=== PATIENT | female | born 2000 | race Caucasian/White ===

== ENCOUNTER 2021-10-09 21:43 | Emergency (ER) | payer BC, OTHER ==
[2021-10-09 21:57] VITALS: RESP 18
--- NOTE | 2021-10-09 23:14 | ED ---
Fever HPI - General Chief Complaint: Fever Stated Complaint: fever Time Seen by Provider: 10/09/21 22:55 Source: patient, RN notes reviewed Mode of arrival: ambulatory Limitations: no limitations - History of Present Illness Initial Comments: Patient is a 21-year-old female that presents to the emergency department complaining of fever and upper respiratory tract symptoms for the past several days. She notes she came to the emergency room due to being unable to break her fever. She notes it was anywhere from 102 203.5 at home. She notes she been taking DayQuil Tylenol throughout the day. She was otherwise well-appearing in no apparent distress. She denied any chest pain first breath headache nausea vomiting diarrhea constipation fatigue chills. - Related Data Previous Rx's Medication Instructions Recorded predniSONE 50 mg PO DAILY #5 tab 10/09/21 Allergies Allergy/AdvReac Type Severity Reaction Status Date / Time No Known Allergies Allergy Verified 10/09/21 21:57 Review of Systems ROS Statement: Those systems with pertinent positive or pertinent negative responses have been documented in the HPI. ROS Other: All systems not noted in ROS Statement are negative. Past Medical History Past Medical History: No Reported History History of Any Multi-Drug Resistant Organisms: None Reported Past Surgical History: Breast Surgery Past Psychological History: No Psychological Hx Reported Smoking Status: Never smoker Past Alcohol Use History: Occasional Past Drug Use History: None Reported General Exam Limitations: no limitations General appearance: alert, in no apparent distress Head exam: Present: atraumatic, normocephalic, normal inspection Eye exam: Present: normal appearance, PERRL, EOMI. Absent: scleral icterus, conjunctival injection, periorbital swelling ENT exam: Present: normal exam, mucous membranes moist Neck exam: Present: normal inspection Respiratory exam: Present: normal lung sounds bilaterally. Absent: respiratory distress, wheezes, rales, rhonchi, stridor Cardiovascular Exam: Present: regular rate, normal rhythm, normal heart sounds. Absent: systolic murmur, diastolic murmur, rubs, gallop, clicks Extremities exam: Present: normal inspection, full ROM, normal capillary refill. Absent: tenderness, pedal edema, joint swelling, calf tenderness Neurological exam: Present: alert, oriented X3 Psychiatric exam: Present: normal affect, normal mood Skin exam: Present: warm, dry, intact, normal color. Absent: rash Course Vital Signs 10/09/21 21:54 Temperature 100.9 F H Pulse Rate 122 H Respiratory 18 Rate Blood Pressure 131/80 O2 Sat by Pulse 96 Oximetry Medical Decision Making - Medical Decision Making 19-year-old female complaining of fever and upper respiratory tract symptoms. Covid test ordered and is positive. Patient does not meet criteria for monoclonal antibodies but is agreeable with discharge home with conservative management. Case discussed with Dr. Hernandez - Lab Data Lab Results 10/09/21 Range/Units 22:03 Coronavirus (PCR) Detected A (Not Detectd) Disposition Clinical Impression: COVID Disposition: HOME SELF-CARE Condition: Stable Instructions (If sedation given, give patient instructions): Fever in Adults (ED) Additional Instructions: Please return to the Emergency Department if symptoms worsen or any other concerns. Follow-up with primary care 1-2 days been Alternate Motrin 600 and Tylenol 650 every 3 hours as needed for fever control. Take prednisone as prescribed. Prescriptions: predniSONE 50 mg PO DAILY #5 tab Is patient prescribed a controlled substance at d/c from ED?: No Referrals: Choco Gallagher MD [Primary Care Provider] - 1-2 days Time of Disposition: 23:14
[2021-10-09 23:34] VITALS: BP 111/59; PULSE 98; TEMP 99
== END 2021-10-09 23:33 | disposition home or self-care (01) ==
LOC: EC 21:43
DX: U07.1 COVID-19 (principal)
CPT/HCPCS: 87635; 99283

== ENCOUNTER → 2023-06-22 | Outpatient (CLI) | payer BC ==
--- NOTE | 2023-06-22 14:28 | US ---
EXAMINATION TYPE: US transvaginal DATE OF EXAM: 06/22/2023 COMPARISON: NONE CLINICAL INDICATION: Female, 23 years old with history of R10.2 PELVIC AND PERINEAL PAIN; Pain patien t donates eggs last time x 1 1/2 years ago. TECHNIQUE: Transvaginal (TV EXAM MEASUREMENTS: Uterus: 7.4 x 4.5 x 5.1 cm Endometrial Stripe: 1.1 cm Right Ovary: 5.0 x 2.6 x 3.6 cm Left Ovary: 4.7 x 2.1 x 3.8 cm 1. Uterus: Anteverted wnl 2. Endometrium: wnl 3. Right Ovary: Appears enlarged 4. Left Ovary: Appears enlarged hypoechoic area calcified 1.5 x 1.8 x 1.8 cm. 5. Bilateral Adnexa: wnl 6. Posterior cul-de-sac: wnl IMPRESSION: 1. Nonspecific Solid appearing lesion left ovary with focal calcification. Follow-up study in 6 weeks is advised.
== END | disposition home or self-care (01) ==
LOC: RADUSWWP 13:38
PROVIDERS: ATTEND Family Medicine
DX: N83.9 Noninflammatory disorder of ovary, fallopian tube and broad ligament, unspecified (principal); R10.2 Pelvic and perineal pain
CPT/HCPCS: 76830

== ENCOUNTER → 2023-07-12 | Outpatient (CLI) | payer BC ==
--- NOTE | 2023-07-12 10:47 | CT ---
EXAMINATION TYPE: CT abdomen pelvis wo con DATE OF EXAM: 07/12/2023 COMPARISON: 05/06/2015 HISTORY: 23-year-old female R19.09, other intra-abdominal and pelvic swelling, left ovarian mass CT DLP: 357.2 mGycm. Automated exposure control for dose reduction was used. TECHNIQUE: Contiguous axial scanning of the abdomen and pelvis without IV contrast. Coronal and sagit allyson reconstructions performed. FINDINGS: LUNG BASES: No significant abnormality is appreciated. Partially visualized bilateral breast implants . LIVER/GB: No significant abnormality is appreciated. PANCREAS: No significant abnormality is seen. SPLEEN: No significant abnormality is seen. ADRENALS: No significant abnormality is seen. KIDNEYS: No significant abnormality is seen. BOWEL: Normal appendix. Scattered [id number] stool. No pericolonic inflammatory change. Some sc attered prominent fluid-filled small bowel loops. No dilated small bowel, free fluid, or free air. LYMPH NODES: A couple borderline enlarged lymph nodes right lower quadrant measuring up to 1 cm. OTHER: No significant abnormality is seen. PELVIS: Uterus is retroverted. Prominent bilateral ovaries are redemonstrated. Left ovary measuring 5 .4 x 3.3 cm, versus 4.7 x 2.9 cm in 2015. On the present exam, we appreciate internal fat density jihan ng the anterior margin. Possibly underlying cystic change with septation involving the left ovary whi ch measures at least 4.6 x 4.1 cm, slightly larger from 3.9 x 3.4 cm, previously. No abnormal fluid c ollection in the pelvis or pelvic lymphadenopathy seen. BONES: No significant abnormality is seen. IMPRESSION: 1. Large size to the bilateral ovaries, slightly increased from 2015. Possibly underlying complex cy stic lesion in the right ovary and suspected underlying slightly enlarging dermoid cyst of the left o vary. Right ovary measures up to 5.4 cm versus 4.7 cm in 2015. Left ovary measures up to 4.6 cm versu s 3.9 cm in 2015. Consider further detailed characterization with female pelvic MRI and with RECORDS SUPERVISOR r eferral. 2. Scattered prominent fluid-filled small bowel loops throughout the abdomen may be transient or cou ld represent a mild ileus/enteritis.
== END | disposition home or self-care (01) ==
LOC: RADCTMAIN 08:48
PROVIDERS: ATTEND Family Medicine
DX: R19.09 Other intra-abdominal and pelvic swelling, mass and lump (principal); N83.202 Unspecified ovarian cyst, left side
CPT/HCPCS: 74176

== ENCOUNTER → 2023-08-02 | Outpatient (CLI) | payer BC ==
--- NOTE | 2023-08-04 11:04 | MR ---
EXAMINATION TYPE: MR pelvis wo/w con DATE OF EXAM: 08/02/2023 7:21 AM CLINICAL INDICATION:Female, 23 years old with history of N83.292 OTHER OVARIAN CYST, LEFT SIDE, Pelvi c pain, abnormal US/CT. COMPARISON: CT 07/12/2023, ultrasound 06/22/2023 TECHNIQUE: Triplane multisequence imaging was performed of the pelvis. IV Contrast: 7 cc Gadavist FINDINGS: Reproductive: Vagina: Unremarkable. Uterus: The uterus is retroverted in position. Uterus measures 7.9 x 4.3 x 5.4 cm. The endometrium an d junctional zone are within normal limits. Multiple nabothian cysts are seen in the lower uterine s egment. Ovaries: The right ovary measures 4.7 x 5.7 x 2.3 cm left ovary measures 3.1 x 4.3 x 2.6 cm there ar e multiple bilateral peripheral follicular changes greater than 20 bilaterally. One cyst on the left demonstrates intrinsic high T1 which fat saturates out on fat saturation sequences and is compatible with dermoid measuring 19 mm. No abnormal postcontrast enhancement. Bladder: Unremarkable. Bowel: Unremarkable as visualized. Peritoneum: A small amount of free fluid in the pelvis. Lymph nodes: No evidence of adenopathy. Vasculature: Unremarkable. Musculoskeletal: Bone marrow signal is within normal signal intensity. Abdominal wall/soft tissues: Unremarkable. IMPRESSION: 1. Multiple, greater than 20, ovarian follicles bilaterally compatible with polycystic ovarian morph ology. Correlate clinically for polycystic ovarian syndrome. 2. Left ovarian dermoid measuring up to 19 mm.
== END | disposition home or self-care (01) ==
LOC: RADMRIMAIN 06:22
PROVIDERS: ATTEND Family Medicine
DX: D27.1 Benign neoplasm of left ovary (principal)
CPT/HCPCS: 72197; A9585

== ENCOUNTER 2023-10-12 08:21 | Day surgery (SDC) | payer BC ==
[2023-10-09 11:07] VITALS: BMI 28.3
--- NOTE | 2023-10-11 16:27 | P.HPOB ---
History of Present Illness H&P Date: 10/11/23 Chief Complaint: pelvic pain, persitent cyst 23 year old presents for diagnostic cystoscopy with lydia arzate and removal of dermoid cyst. There has been a persistent cyst on the left that is a suspected dermoid causing pain. Review of Systems All systems: negative Constitutional: Denies chills, Denies fever Eyes: denies blurred vision, denies pain Ears, nose, mouth and throat: Denies headache, Denies sore throat Cardiovascular: Denies chest pain, Denies shortness of breath Respiratory: Denies cough Gastrointestinal: Denies abdominal pain, Denies diarrhea, Denies nausea, Denies vomiting Genitourinary: Denies dysuria, Denies hematuria Musculoskeletal: Denies myalgias Integumentary: Denies pruritus, Denies rash Neurological: Denies numbness, Denies weakness Psychiatric: Denies anxiety, Denies depression Endocrine: Denies fatigue, Denies weight change Past Medical History Past Medical History: Eye Disorder Additional Past Medical History / Comment(s): Very heavy mentrual cycles, anemia, "They're watching for glaucoma", rash to back of neck. History of Any Multi-Drug Resistant Organisms: None Reported Past Surgical History: Breast Surgery, Hysterectomy Additional Past Surgical History / Comment(s): bilat breast augmentation, egg retrieval, teeth extraction w/anesthesia. Additional Past Anesthesia/Blood Transfusion Reaction / Comment(s): "slow to come out of" Smoking Status: Current some day smoker - Past Family History Father Family Medical History: No Reported History Medications and Allergies Home Medications Medication Instructions Recorded Confirmed Type Desoximetasone [Topicort 0.05% 1 applic TOPICAL DAILY PRN 10/09/23 10/09/23 History Cream] Iron Supplement 250mg Capsule 500 mg PO QAM 10/09/23 10/09/23 History Magnesium Oxide [Magnesium] 1,000 mg PO QAM 10/09/23 10/09/23 History Naproxen Sodium [Aleve] 400 mg PO Q4HR PRN 10/09/23 10/09/23 History Allergies Allergy/AdvReac Type Severity Reaction Status Date / Time No Known Allergies Allergy Verified 10/09/23 11:54 Exam Osteopathic Statement: *. No significant issues noted on an osteopathic structural exam other than those noted in the History and Physical/Consult. HEart: RRR Lungs: CTAB Abdomen: soft, nontender Extremeties: neg violeta's Assessment and Plan (1) Dermoid cyst Status: Acute Code(s): D36.9 - BENIGN NEOPLASM, UNSPECIFIED SITE SNOMED Code(s): 787458796 Plan: 1. diagnostic laparoscopy using da huey and removal of dermoid cyst, possible unilateral oopherectomy
[~2023-10-12 08:21] MED LIST: DEXAMETHASONE SOD PHOSPHATE 4 MG/ML 1 ML VIAL IV ONE; HYDROmorphone 0.5 MG/0.5 ML SYRINGE IVP PRN; LACTATED RINGERS 1,000 ML IV SCH; LIDOCAINE 1% (10MG/ML) FOR IV START INTRADERMA PRN; MIDAZOLAM 2 MG/2 ML VIAL IV PRN; ONDANSETRON 4 MG/2 ML VIAL IVP ONE
[2023-10-12] MEDS ORDERED: ONDANSETRON 4 MG/2 ML VIAL IVP ONE ×2 (08:55→10:55)
[2023-10-12] MEDS ORDERED: DEXAMETHASONE SOD PHOSPHATE 4 MG/ML 1 ML VIAL IVP ONE (08:56)
[2023-10-12] MEDS ORDERED: MIDAZOLAM 2 MG/2 ML VIAL IVP ONE (09:11)
[2023-10-12] MEDS ORDERED: fentaNYL (PF) 50 MCG/ML 2 ML AMP IVP ONE (09:11)
[2023-10-12 09:15] LABS: Basophils % (A) 1 %; Eosinophils # (A) 0.1 k/uL (0-0.7); Eosinophils % (A) 2 %; HCT 36.4 % (34.0-46.0); HGB 11.6 gm/dL (11.4-16.0); Hypochromasia Slight; Lymphocytes % (A) 35 %; MCV 78.1 fL (80.0-100.0); Mean Platelet Volume 8.1; Monocytes # (A) 0.4 k/uL (0-1.0); Monocytes % (A) 7 %; Neutrophils % (A) 53 %; Platelet Count 222 k/uL (150-450); RBC 4.65 m/uL (3.80-5.40); RDW 14.2 % (11.5-15.5); WBC 5.6 k/uL (3.8-10.6)
--- NOTE | 2023-10-12 09:20 | P.ANPRN ---
Procedure Note - Anesthesia - Nerve Block Performed Bilateral Erector Spinae Single Time Out Performed: Yes Date of Procedure: 10/12/23 Procedure Start Time: :10 Procedure Stop Time: :18 Location of Patient: PreOp Indication: Acute Post-Operative Pain, Requested by Surgeon Sedation Type: Sedate with meaningful contact maintained Preparation: Sterile Prep, Sterile Dressing Position: Prone Needle Types: Pajunk Needle Gauge: 21 Ultrasound used to visualize needle placement: Yes Ultrasound used to observe medication spread: Yes Injectate: 0.5% Ropivacaine (see comment for volume) (20 ml + 10 ml NS + 4 mg Dexamethasone per side) Blood Aspirated: No Pain Paresthesia on Injection Noted: No Resistance on Injection: Normal Image Stored and Saved: Yes Events: Uneventful and Well Tolerated
[2023-10-12] MEDS ORDERED: fentaNYL (PF) 50 MCG/ML 2 ML AMP ONE (09:26)
[2023-10-12] MEDS ORDERED: MIDAZOLAM 2 MG/2 ML VIAL ONE (09:26)
[2023-10-12] MEDS ORDERED: ROCURONIUM 10 MG/ML (5 ML VIAL) IV ONE (09:26)
[2023-10-12] MEDS ORDERED: NEOSTIGMINE 1 MG/ML 10 ML VIAL ONE (09:26)
[2023-10-12] MEDS ORDERED: DEXAMETHASONE SOD PHOSPHATE 4 MG/ML 1 ML VIAL ONE (09:26)
[2023-10-12] MEDS ORDERED: KETOROLAC 15 MG/ML 1 ML VIAL ONE (09:26)
[2023-10-12] MEDS ORDERED: PROPOFOL 10 MG/ML 20 ML VIAL IV ONE (09:26)
[2023-10-12] MEDS ORDERED: ROPIVACAINE 5 MG/ML 30 ML VIAL ONE (09:26)
[2023-10-12] MEDS ORDERED: SODIUM CHLORIDE 0.9% (PF) 10 ML VIAL ONE (09:26)
[2023-10-12] MEDS ORDERED: LIDOCAINE 1% INJ 10MG/ML (20 ML MDV) ONE (09:26)
[2023-10-12] MEDS ORDERED: GLYCOPYRROLATE 0.2 MG/ML 2 ML VIAL ONE (09:26)
[2023-10-12] MEDS ORDERED: BUPIVACAINE (PF) 0.25% 30 ML VIAL SQ ONE (09:53)
[2023-10-12] MEDS ORDERED: LACTATED RINGERS 1,000 ML IV ONE ×2 (10:42)
--- NOTE | 2023-10-12 10:50 | P.OP ---
Date of Procedure: 10/12/23 Preoperative Diagnosis: 1. pelvic pain 2. left ovarian cyst-suspect dermoid Postoperative Diagnosis: 1. pelvic pain 2. multiple left ovarian cyst, one mucinous cyst Procedure(s) Performed: diagnostic laparoscopy using da nae with removal of left mucinous cyst Anesthesia: ASHLEY Surgeon: Aida Taveras Estimated Blood Loss (ml): 5 IV fluids (ml): 800 Urine output (ml): 50 Pathology: other (left ovarian cyst) Condition: stable Disposition: PACU Operative Findings: multiple follicles on right ovary, multiple small right ovarian serous filled cysts and one mucinous cyst. normal uterus and fallopian tubes. Description of Procedure: Patient taken the operating room where general anesthesia was obtained without difficulty. She is prepped and draped in normal sterile fashion dorsal lithotomy position, legs placed in the Darron stirrups. Weighted speculum placed in the vagina and the anterior lip the cervix was grasped with single-tooth tenaculum. The uterus sounded to 8 cm and the kroner manipulator was placed. Mariscal catheter was also placed. Attention was then turned to the abdomen and gloves were changed. A 5 mm supraumbilical incision was made the scalpel and a 5 mm optical trocar was placed under direct visualization. 10 cm to the right of this and 2 cm down a 5 mm incision was made and 8 mm da Nae port was placed under direct visualization. Same measurements on the opposite side of the patient's abdomen, the 5 mm incision was made and 8 mm da Nae port was placed under direct visualization. In the left upper quadrant a 10 mm incision was made and a 10 mm optical trocar was placed under direct visualization. The 5 mm optical trocar was then replaced with the 8 mm da Ane camera port. The robot was docked on patient's left side. The camera was introduced and then the monopolar curved scissor and [place] bipolar placed under direct visualization. I broke scrub and went to the physician console. Survey of the pelvis noted normal uterus and fallopian tubes, the ovaries were bright white and appeared somewhat enlarged. The right ovary had multiple small follicles on the surface. The left ovary did have a few serous cysts on the posterior aspect and a linear incision was made using the monopolar curved scissors. I found a few serous cysts that were bursts with dissection, then a mucinous cyst was noted. This cyst was shelled out and removed through the family medicine physician assistant port. I explored the ovary thoroughly and did not see a dermoid cyst. Hemostasis was assured on this ovary and it naturally closed itself in good orientation. No stitches were needed to be placed. The pelvis was irrigated and hemostasis again ensured. All instruments were removed from the abdomen and the robot was undocked. The abdominal incisions were closed with 4-0 Vicryl in a subcuticular fashion. Patient tolerated the procedure well, sponge and instrument counts correct 2 and she was taken to recovery room in stable condition condition
[2023-10-12 10:52] VITALS: TEMP 98.4
[2023-10-12] MEDS ORDERED: droPERidol 5 MG/2 ML VIAL IVP ONE (11:12)
[2023-10-12 12:08] VITALS: RESP 18
[2023-10-12 13:56] VITALS: BP 110/72; PULSE 70
== END 2023-10-12 14:56 | disposition home or self-care (01) ==
LOC: OR 08:21
PROVIDERS: ATTEND Obstetrics & Gynecology
DX: D27.1 Benign neoplasm of left ovary (principal); G89.18 Other acute postprocedural pain; N92.0 Excessive and frequent menstruation with regular cycle; D64.9 Anemia, unspecified; F32.A Depression, unspecified; Z90.710 Acquired absence of both cervix and uterus; F17.200 Nicotine dependence, unspecified, uncomplicated; Z79.899 Other long term (current) drug therapy
CPT/HCPCS: 81025; 64999; 85025; 88307; 58662; J2250; J1100; J2710; J0690; J2405; J2001; J3010; J2795; J1885; J2704; J1790; J0665; 88304